=== PATIENT | male | born 1980 | race Hispanic/Latino ===

== ENCOUNTER 2017-03-24 12:44 | Emergency (ER) | payer BC ==
[2017-03-24 13:15] LABS: #Basophils 0.1 thou/uL (0.0-0.2); #Eosinphils 0.1 thou/uL (0.0-0.7); #Lymphocytes 1.7 thou/uL (1.20-3.40); #Monocytes 0.6 thou/uL (0.11-0.59); #Neutrophils 7.9 thou/uL (1.40-6.50); %Basophils 0.7 % (0.0-1.0); %Eosinophils 0.6 % (0.0-10.0); %Lymphocytes 16.8 % (21.0-51.0); %Monocytes 5.5 % (0.0-10.0); Hematocrit 45.4 % (42.0-52.0); Mean Platelet Volume 8.2 fL (7.4-10.4); Red Blood Cell (RBC) Count 5.11 mill/uL (4.70-6.10); White Blood Cell (WBC) Count 10.3 thou/uL (4.8-10.8)
[2017-03-24 13:30] LABS: ALT (SGPT) 21 U/L (8-55); AST (SGOT) 17 U/L (5-34); Alkaline Phosphatase 72 U/L (40-150); Anion Gap 17 mmol/L (10-20); BUN (Urea Nitrogen) 12 mg/dL (8.9-20.6); Bilirubin, Total 0.4 mg/dL (0.2-1.2); CK (CPK) 132 U/L (30-200); Calc. Creatinine Clearance 0 mL/min (70-130); Calcium 9.9 mg/dL (7.8-10.44); Carbon Dioxide 22 mmol/L (22-29); Chloride 104 mmol/L (98-107); Estimated GFR-MDRD 79; Globulin 3.8 g/dL (2.4-3.5); Protein, Total 8.1 g/dL (6.0-8.3)
[2017-03-24 13:31] LABS: Troponin I Less than 0.010 ng/mL (< 0.028)
--- NOTE | 2017-03-24 14:49 | RAD ---
TWO VIEWS OF CHEST HISTORY: Chest pain. FINDINGS: PA and lateral views of the chest obtained. The lungs are well-aerated. No evidence of active intrathoracic disease seen. No evidence of effus ions, pneumonia, or pneumothorax seen. IMPRESSION: Unremarkable two views chest. POS: [facility]
[2017-03-24 16:31] LABS: Troponin I Less than 0.010 ng/mL (< 0.028)
== END 2017-03-24 17:01 | disposition home or self-care (01) ==
LOC: ERS 12:44 → SCSER 17:01
DX: R07.89 Other chest pain (principal)
CPT/HCPCS: 71020; 80053; 82550; 82553; 84484; 85025; 93005; 94760

== ENCOUNTER 2017-07-05 08:03 | Outpatient (CLI) | payer BC ==
--- NOTE | 2017-07-05 08:55 | ULT ---
RENAL ULTRASOUND: Clinical history: Abdominal pain. FINDINGS: No overt hydronephrosis of either kidney. Urinary bladder is incompletely distended which limits asse ssment. No evidence of a suspicious renal lesion. IMPRESSION: 1. No acute renal pathology evident sonographically. 2. Contracted urinary bladder limits assessment. POS: [facility]
== END 2017-07-05 08:04 | disposition home or self-care (01) ==
LOC: ULT 08:03
PROVIDERS: ATTEND Family Medicine
DX: R10.9 Unspecified abdominal pain (principal)
CPT/HCPCS: 76770

== ENCOUNTER 2018-05-10 07:04 | Outpatient (CLI) | payer BC ==
--- NOTE | 2018-05-10 08:26 | ULT ---
ULTRASOUND ABDOMEN COMPLETE PELVIC ULTRASOUND AND URINARY BLADDER ULTRASOUND: HISTORY: Flank pain. TECHNIQUE: Lara-scale ultrasound evaluation of the liver, gallbladder, spleen, pancreas, common bile duct, kidne ys, abdominal aorta, and inferior vena cava (IVC). FINDINGS: There is no focal hepatic lesion or acute gallbladder pathology. No evidence of hydronephrosis. The imaged aspects of the spleen are unremarkable. Pancreas is partially obscured from view by bowel co ntent limiting assessment. No abnormal biliary ductal dilatation is seen. Imaging of the pelvis reveals a mildly distended urinary bladder with a small post void residual. No ascites is evident. IMPRESSION: 1. No acute abnormality of the abdomen evident. 2. Small post void residual within the urinary bladder. POS: [facility]
== END 2018-05-10 07:05 | disposition home or self-care (01) ==
LOC: SCSULT 07:04 → BICULT 07:05
PROVIDERS: ATTEND Family Medicine
DX: R10.9 Unspecified abdominal pain (principal)
CPT/HCPCS: 76700; 76856

== ENCOUNTER 2018-05-30 08:56 | Outpatient (CLI) | payer BC ==
--- NOTE | 2018-05-30 12:58 | MRI ---
MRI OF THE THORACIC SPINE WITHOUT AND WITH CONTRAST: COMPARISON: None. HISTORY: Low back pain that radiates to the mid abdomen for 2 months. TECHNIQUE: Multiplanar, multisequence MR images were obtained of the thoracic spine without contrast. FINDINGS: The vertebral bodies and intervertebral disks demonstrate normal height and alignment without fractur e or subluxation. The visualized cord demonstrates normal signal throughout. The prevertebral and p araspinal soft tissues are unremarkable. No significant posterior bulge or protrusion is seen throughout the thoracic spine. Small anterior o steophytes are seen in the lower thoracic spine. No posterior facet arthrosis is seen. No neural fo raminal or central canal stenosis. IMPRESSION: No significant MRI abnormality of the thoracic spine. POS: [facility]
--- NOTE | 2018-05-30 13:01 | MRI ---
MRI OF THE LUMBAR SPINE WITHOUT CONTRAST: COMPARISON: None. HISTORY: Lower back pain that radiates to the abdomen for 2 months. TECHNIQUE: Multiplanar, multisequence MR images were obtained of the lumbar spine without contrast. FINDINGS: The vertebral bodies and intervertebral disks demonstrate normal height and alignment without fractur e or subluxation. No significant disk desiccation is seen. The conus medullaris terminates normally at L1. The prevertebral and paraspinal soft tissues are unremarkable. No significant posterior bulge or protrusion is seen throughout the lumbar spine. No significant pos terior facet arthrosis. No neural foraminal or central canal stenosis. IMPRESSION: Unremarkable MRI of the lumbar spine. POS: [facility]
== END 2018-05-30 08:57 | disposition home or self-care (01) ==
LOC: SCSMRI 08:56
PROVIDERS: ATTEND Family Medicine
DX: R10.9 Unspecified abdominal pain (principal)
CPT/HCPCS: 72146; 72148

== ENCOUNTER 2018-08-20 08:02 | Day surgery (SDC) | payer BC ==
[2018-08-19 10:55] VITALS: BMI 39.6
--- NOTE | 2018-08-20 13:10 | OP ---
DATE OF PROCEDURE: 08/20/2018 PROCEDURE PERFORMED: Esophagogastroduodenoscopy. PREPROCEDURE DIAGNOSES: 1. Vague epigastric pain and upper abdominal pain on and off. 2. Reflux, well controlled on PPI. 3. Prior history of diverticulitis. 4. Normal CBC, CMP. POSTPROCEDURE DIAGNOSES: 1. Normal esophagus. 2. Mild nodular gastritis in the antrum, biopsied for Helicobacter pylori, otherwise normal esophagogastroduodenoscopy. 3. Normal duodenum. RECOMMENDATIONS: 1. Await biopsies. 2. Follow up in my office on 08/23/2018, at 9:20. ANESTHESIA: TIVA. PROCEDURE IN DETAIL: The patient was informed of the risks, benefits, and possible complications of endoscopy including perforation, reaction to medication, and aspiration, informed consent was obtained. The patient was brought to the Endoscopy Suite, where he a sedated in gradual fashion. Once he was comfortable, a bite block was placed inside his orifice. The endoscope was advanced through the esophagus, stomach, and second and third portion of the duodenum and slowly removed. There was good visualization of the mucosa. There were no mass, lesions, or AV malformations in the upper GI tract. The esophagus was normal with normal Z-line. There were no signs of hiatal hernia. On entering the stomach, the stomach with normal distensibility and normal in forward and retroflexed views. The GE junction was normal. There was fine nodular gastritis in the antrum consistent with the appearance of H pylori. Biopsies were taken and submitted to pathology for H pylori histology. The duodenal bulb and second and third portions were normal. The scope was then slowly removed with good visualization of the mucosa. The remainder of the esophagus was evaluated and found to be normal. The scope was removed. The patient tolerated the procedure well. There were no complications. Job ID: [id number]
[2018-08-20] MEDS ORDERED: Lidocaine 1% PF 5 ML VIAL ONE (13:43)
[2018-08-20] MEDS ORDERED: PROPOFOL 200 MG/20 ML VIAL ONE (13:43)
== END 2018-08-20 11:00 | disposition home or self-care (01) ==
LOC: SDC 08:02
PROVIDERS: ATTEND Internal Medicine Gastroenterology
PROC: 0DB78ZX Excision of Stomach, Pylorus, Via Natural or Artificial Opening Endoscopic, Diagnostic (ICD-10-PCS; principal; 2018-08-20)
DX: K29.50 Unspecified chronic gastritis without bleeding (principal); B96.81 Helicobacter pylori [H. pylori] as the cause of diseases classified elsewhere; K21.9 Gastro-esophageal reflux disease without esophagitis; Z79.899 Other long term (current) drug therapy
CPT/HCPCS: 88305; 88312; 88342; J2001; J2704

== ENCOUNTER 2018-09-26 00:04 | Outpatient (CLI) | payer BC ==
[2018-09-26 12:17] LABS: Hemoglobin 15.4 g/dL (14.0-18.0); Mean Corpuscular HGB CONC 34.1 g/dL (32.0-36.0); Mean Corpuscular Hemoglobin 32.1 pg (27.0-31.0); Mean Corpuscular Volume 94.1 fL (78.0-98.0); Platelet Count 253 thou/uL (130-400); RBC Distribution Width 11.6 % (11.5-14.5); Red Blood Cell (RBC) Count 4.79 mill/uL (4.70-6.10); White Blood Cell (WBC) Count 7.2 thou/uL (4.8-10.8)
[2018-09-26 12:18] LABS: Bilirubin Negative (Negative); Blood, Urine Negative (Negative); Clarity CLEAR (Clear); Glucose, Urine (Dipstick) Negative (Negative); Leukocyte Small (Negative); Nitrite Negative (Negative); Protein, Urine (Dipstick) Negative (Neg-Trace); Specific Gravity, Urine 1.022 (1.002-1.036); Urobilinogen 0.2 mg/dL (0.2-1.0); pH, Urine 7.5 (5.0-9.0)
[2018-09-26 12:19] LABS: Bacteria/HPF None Seen HPF (None Seen); Hyaline Casts/LPF 0-3 HYALINE CAST LPF (0-3 Hyaline); Pathc Cast-AUWi Flag 0.13 (0-2.49); RBC/HPF 0-3 HPF (0-3); Squamous Epithelial 0-3 HPF (0-3)
[2018-09-26 12:27] LABS: INR-International Normal Ratio 1.1; PTT 29.4 SEC (22.9-36.1); Prothrombin Time 13.8 SEC (12.0-14.7)
[2018-09-26 12:36] LABS: Anion Gap 11 mmol/L (10-20); BUN (Urea Nitrogen) 15 mg/dL (8.9-20.6); Calc. Creatinine Clearance 0 mL/min (70-130); Calcium 9.4 mg/dL (7.8-10.44); Carbon Dioxide 27 mmol/L (22-29); Chloride 104 mmol/L (98-107); Estimated GFR-MDRD Greater than 90; Glucose 91 mg/dL (70-105); Potassium 4.3 mmol/L (3.5-5.1); Sodium 138 mmol/L (136-145)
== END 2018-09-26 00:05 | disposition home or self-care (01) ==
LOC: LABBT 00:04
PROVIDERS: ATTEND Urology
DX: Z01.812 Encounter for preprocedural laboratory examination (principal); N35.11 Postinfective urethral stricture, not elsewhere classified, male
CPT/HCPCS: 80048; 81001; 85027; 85610; 85730; 87086

== ENCOUNTER 2018-10-03 06:03 | Day surgery (SDC) | payer BC ==
[2018-09-26 10:56] VITALS: BMI 39.8
[2018-10-03] MEDS ORDERED: Levofloxacin 500 mg/D5W 100 ml Premix Bag ONE (06:17)
[2018-10-03] MEDS ORDERED: Fentanyl 100 MCG/2 ML VIAL ONE (07:16)
[2018-10-03] MEDS ORDERED: Midazolam HCl 2 mg/2 ml Vial ONE (07:20)
[2018-10-03] MEDS ORDERED: Ondansetron PF 4 MG/2 ML Vial ONE (11:47)
[2018-10-03] MEDS ORDERED: PROPOFOL 200 MG/20 ML VIAL ONE (11:47)
[2018-10-03] MEDS ORDERED: Lidocaine 1% PF 5 ML VIAL ONE (11:47)
[2018-10-03] MEDS ORDERED: Dexamethasone 20 MG/5 ML VIAL ONE (11:47)
[2018-10-03] MEDS ORDERED: Ketorolac Tromethamine 30 MG/ML VIAL ONE (11:47)
--- NOTE | 2018-10-03 14:31 | OP ---
DATE OF PROCEDURE: 10/03/2018 PREOPERATIVE DIAGNOSIS: Bulbar urethral stricture. POSTOPERATIVE DIAGNOSIS: Bulbar membranous urethral stricture. PROCEDURE PERFORMED: Direct vision internal urethrotomy. INDICATION FOR PROCEDURE: Mr. Daugherty is a 38-year-old male with a history of urethral stricture, which has been previously treated with DVIU. He had an approximately 10-year success rate with this, but has subsequently developed progressively worsening urinary stream and lower urinary tract symptoms. On repeat cystoscopy, he was found to have a stricture recurrence, which appears fairly tight. I talked to him about doing a DVIU again to see what kind of results he would get and to stage his stricture more thoroughly. Risks and benefits were discussed and he has agreed to proceed forward. DESCRIPTION OF PROCEDURE: After identification of armband and verification of consent, the patient was brought back to the operating room, where he underwent general anesthesia with an LMA. He was then placed in dorsal lithotomy position and prepped and draped in the usual sterile fashion. After appropriate time-out, a lubricated 22-[place]ese rigid cystoscope was introduced per urethra up to the level of the stricture. The distal aspect of the stricture was in the bulbar urethra and was found to be approximately 6-Taiwanese in size. The cystoscope was then removed and the sheath for the urethrotome was brought in. Using the fixed blade, an incision was made at 12 o'clock on the urethral stricture until healthier corpora spongiosum could be seen with bleeding. The same was repeated on the inferior aspect at 6 o'clock where the other aspect of the stricture was most dense. This did allow for complete widening of the stricture, but when going past this it was apparent that there was more blanched dense whitish stricture progressing all the way through the bulbar and membranous urethra up to the verumontanum. This stricture was cut gently taking care not to exceed the corpora spongiosum to avoid damaging the urethral sphincter muscle. The incision was made carefully just until a slightly healthy bleeding tissue could be seen along the membranous urethra both at 6 o'clock and at 12 o'clock. This did allow for complete and easy passage of the 21-Taiwanese sheath that the urethrotome was attached to into the bladder, which appeared normal. The prostate was not obstructive and was normal for the patient's age. The stricture was widely patent at this point with healthy tissue seen again on the 6 and 12 o'clock positions. The scope was then advanced into the bladder and the urethrotome removed. A guidewire was placed through the sheath into the patient's bladder and then the sheath removed. A 16-[place] tip catheter was advanced over the guidewire into the bladder with ease. The wire was then removed and 10 mL of sterile water was instilled into the balloon. The bladder was irrigated until clear and then affixed to a gravity bag and a StatLock. The patient was then awakened and taken to PACU for recovery in stable condition. COMPLICATIONS: None. ESTIMATED BLOOD LOSS: Minimal. RETAINED TUBES AND DRAINS: A 16-[place]ese [place] tip catheter. SPECIMENS: None. DISPOSITION: The patient will be discharged home and follow up with me in approximately 1 week for a void trial. I would estimate the patient has probably around 40% to 50% chance of keeping the stricture patent given what I have seen with the length and density of the stricture. There is a high probability he will probably need to progress toward urethroplasty, which we can discuss in the future, but we will first see how his stricture does in the future. Job ID: [id number]
== END 2018-10-03 10:05 | disposition home or self-care (01) ==
LOC: SDC 06:03
PROVIDERS: ATTEND Urology
PROC: 0TND8ZZ Release Urethra, Via Natural or Artificial Opening Endoscopic (ICD-10-PCS; principal; 2018-10-03)
DX: N35.912 Unspecified bulbous urethral stricture, male (principal); N35.913 Unspecified membranous urethral stricture, male; I10 Essential (primary) hypertension; Z87.440 Personal history of urinary (tract) infections; Z79.1 Long term (current) use of non-steroidal anti-inflammatories (NSAID); Z79.899 Other long term (current) drug therapy
CPT/HCPCS: J1100; J1885; J1956; J2001; J2250; J2405; J2704; J3010

== ENCOUNTER 2018-12-25 17:00 | Outpatient (CLI) | payer BC | END 2018-12-25 17:01 | disposition home or self-care (01) | LOC: SLEEPLAB 17:00 | PROVIDERS: ATTEND Internal Medicine Critical Care Medicine | DX: G47.33 Obstructive sleep apnea (adult) (pediatric) (principal); R06.83 Snoring; K21.9 Gastro-esophageal reflux disease without esophagitis | CPT/HCPCS: 95806 ==

== ENCOUNTER 2020-09-08 12:43 | Outpatient (CLI) | payer BC | END 2020-09-08 12:44 | disposition home or self-care (01) | LOC: NM 12:43 | PROVIDERS: ATTEND Physician Assistant Medical | DX: K21.9 Gastro-esophageal reflux disease without esophagitis (principal); R07.89 Other chest pain; R10.13 Epigastric pain | CPT/HCPCS: 78227; A9537 ==

== ENCOUNTER 2021-03-24 13:51 | Outpatient (CLI) | payer BC | END 2021-03-24 13:52 | disposition home or self-care (01) | LOC: CTENTCT 13:51 | PROVIDERS: ATTEND Otolaryngology Plastic Surgery within the Head & Neck | DX: J32.8 Other chronic sinusitis (principal) | CPT/HCPCS: 70486 ==